=== PATIENT | female | born 1975 | race Caucasian/White ===

== ENCOUNTER 2020-10-20 07:20 | Emergency (ER) | payer SELFPAY ==
[~2020-10-20] VITALS: Ht 167.6 cm; Wt 70.3 kg
[2020-10-20] MEDS ORDERED: MORPHINE SULFATE INJ 4 MG/ML INJ 1ML IV STA (07:30)
[2020-10-20] MEDS ORDERED: SODIUM CHLORIDE 0.9% 1000ML 1,000 ML IV STA (07:30)
[2020-10-20] MEDS ORDERED: ONDANSETRON HCL INJ 2MG/ML 2ML 2 MG/ML VIAL IV PRN (07:30)
[2020-10-20 07:50] LABS: BASOPHILS # (AUTO) 0.1 (0.0-0.1); BASOPHILS % 0.5 % (0.0-1.0); EOSINOPHILS # (AUTO) 0.1 (0.0-0.4); EOSINOPHILS % 1.1 % (0.0-6.0); HEMATOCRIT 43.6 % (34.2-44.1); HEMOGLOBIN 14.7 g/dL (12.0-16.0); LYMPHOCYTES # (AUTO) 2.5 (1.0-3.2); LYMPHOCYTES % 22.4 % (18.0-39.1); MEAN CORPUSCULAR HEMOGLOBIN 30.2 pg (28-32); MEAN CORPUSCULAR HGB CONC 33.7 g/dL (31-35); MEAN CORPUSCULAR VOLUME 89.7 fL (81-99); MONOCYTES # (AUTO) 0.9 (0.2-0.8); MONOCYTES % 8.4 % (4.4-11.3); NEUTROPHILS # (AUTO) 7.5 (2.1-6.9); NEUTROPHILS % 67.2 % (38.7-80.0); PLATELET COUNT 275 x10e3/uL (140-360); RED BLOOD COUNT 4.86 x10e6/uL (3.6-5.1); RED CELL DISTRIBUTION WIDTH 12.1 % (11.7-14.4)
[2020-10-20 08:10] LABS: ALBUMIN 3.6 g/dL (3.5-5.0); ALBUMIN/GLOBULIN RATIO 0.9 (0.8-2.0); ANION GAP 13.8 mmol/L (8-16); CALCIUM 8.8 mg/dL (8.4-10.2); CREATININE, SERUM 1.06 mg/dL (0.57-1.11); POTASSIUM 3.8 mmol/L (3.5-5.1)
[2020-10-20 09:15] LABS: CLARITY,URINE CLOUDY (CLEAR); COLOR,URINE YELLOW (YELLOW); KETONES,URINE NEGATIVE (NEGATIVE); LEUKOCYTE ESTERASE ,URINE TRACE (NEGATIVE); NITRITE,URINE NEGATIVE (NEGATIVE); PROTEIN,URINE DIPSTICK >=300 (NEGATIVE); URINE UROBILINOGEN 1 mg/dL (0.2 - 1)
[2020-10-20 09:38] LABS: BACTERIA,URINE FEW /HPF; EPITHELIAL CELLS,URINE FEW /LPF; RBC,URINE 0-5 /HPF (0-5); WBC,URINE (MAN) >50 /HPF (0-5)
[2020-10-20 09:39] LABS: MUCUS,URINE FEW (RARE)
[2020-10-20] MEDS ORDERED: KEFLEX500 MG PO (10:49)
[2020-10-20] MEDS ORDERED: ULTRAM50 MG PO (10:49)
[2020-10-20] MEDS ORDERED: ZOFRAN4 MG PO (10:49)
[2020-10-20] MEDS ORDERED: SODIUM CHLORIDE 0.9% 50ML 50 ML ONE (11:06)
[2020-10-20] MEDS ORDERED: IOPAMIDOL 370 MG/ML 200 ML INFUS..BTL INJ ONE (11:07)
== END 2020-10-20 11:32 | disposition home or self-care (01) ==
LOC: ER 08:14
DX: N39.0 Urinary tract infection, site not specified (principal); N20.1 Calculus of ureter; I10 Essential (primary) hypertension
CPT/HCPCS: 36415; 74177; 80053; 81001; 83690; 84702; 85025; 87086; 87186; 99284; J2270; J2405; J7030; Q9967

== ENCOUNTER 2020-12-17 14:06 | Emergency (ER) | payer SELFPAY ==
[~2020-12-17] VITALS: Ht 167.6 cm; Wt 70.3 kg
[~2020-12-17 14:06] MED LIST: KEFLEX500 MG PO; ULTRAM50 MG PO; ZOFRAN4 MG PO
[2020-12-17] MEDS ORDERED: SODIUM CHLORIDE 0.9% 1000ML 1,000 ML IV STA (14:21)
[2020-12-17] MEDS ORDERED: KETOROLAC TROMETHAMINE 30 MG/ML VIAL IV STA (14:21)
[2020-12-17] MEDS ORDERED: ONDANSETRON HCL INJ 2MG/ML 2ML 2 MG/ML VIAL IV PRN (14:30)
[2020-12-17] MEDS ORDERED: FENTANYL CITRATE/PF 100MCG/2 ML INJ IV ONE (14:30)
[2020-12-17 14:32] LABS: BASOPHILS # (AUTO) 0.1 (0.0-0.1); BASOPHILS % 0.6 % (0.0-1.0); EOSINOPHILS # (AUTO) 0.1 (0.0-0.4); HEMATOCRIT 44.1 % (34.2-44.1); HEMOGLOBIN 14.5 g/dL (12.0-16.0); LYMPHOCYTES # (AUTO) 1.8 (1.0-3.2); LYMPHOCYTES % 16.3 % (18.0-39.1); MEAN CORPUSCULAR HEMOGLOBIN 29.7 pg (28-32); MEAN CORPUSCULAR HGB CONC 32.9 g/dL (31-35); MEAN CORPUSCULAR VOLUME 90.4 fL (81-99); MONOCYTES # (AUTO) 0.9 (0.2-0.8); MONOCYTES % 8.4 % (4.4-11.3); NEUTROPHILS # (AUTO) 7.9 (2.1-6.9); NEUTROPHILS % 73.1 % (38.7-80.0); PLATELET COUNT 269 x10e3/uL (140-360); RED BLOOD COUNT 4.88 x10e6/uL (3.6-5.1); RED CELL DISTRIBUTION WIDTH 13.3 % (11.7-14.4)
[2020-12-17 14:40] LABS: CLARITY,URINE CLOUDY (CLEAR); COLOR,URINE YELLOW (YELLOW)
[2020-12-17 14:41] LABS: LEUKOCYTE ESTERASE ,URINE SMALL (NEGATIVE); NITRITE,URINE NEGATIVE (NEGATIVE); PROTEIN,URINE DIPSTICK 2+ (NEGATIVE)
[2020-12-17 14:42] LABS: KETONES,URINE NEGATIVE (NEGATIVE); URINE UROBILINOGEN 1 mg/dL (0.2 - 1)
[2020-12-17 14:55] LABS: BACTERIA,URINE FEW /HPF; EPITHELIAL CELLS,URINE RARE /LPF; RBC,URINE 21-50 /HPF (0-5)
[2020-12-17 15:00] LABS: ALBUMIN/GLOBULIN RATIO 1.1 (0.8-2.0); ANION GAP 13.9 mmol/L (8-16); CALCIUM 9.2 mg/dL (8.4-10.2); CREATININE, SERUM 1.07 mg/dL (0.57-1.11); POTASSIUM 3.9 mmol/L (3.5-5.1)
[2020-12-17] MEDS ORDERED: ULTRAM50 MG PO (16:35)
[2020-12-17] MEDS ORDERED: ZUPLENZ4 MG PO (16:36)
[2020-12-17 16:46] VITALS: BP 132/91
== END 2020-12-17 16:52 | disposition home or self-care (01) ==
LOC: ER 14:24
DX: M54.5 Low back pain (principal); R30.0 Dysuria; N20.1 Calculus of ureter; I10 Essential (primary) hypertension; F17.210 Nicotine dependence, cigarettes, uncomplicated
CPT/HCPCS: 36415; 74176; 80053; 81001; 84702; 85025; 99284; J1885; J2405; J3010; J7030

== ENCOUNTER 2021-02-16 07:33 | Emergency (ER) | payer SELFPAY ==
[~2021-02-16] VITALS: Ht 167.6 cm; Wt 70.3 kg
[~2021-02-16 07:33] MED LIST changes: +ZUPLENZ4 MG PO
[2021-02-16] MEDS ORDERED: DEXTROSE 10% 1,000 ML IV ONE (08:15)
[2021-02-16 08:39] LABS: CLARITY,URINE CLOUDY (CLEAR); COLOR,URINE YELLOW (YELLOW); KETONES,URINE NEGATIVE (NEGATIVE); LEUKOCYTE ESTERASE ,URINE LARGE (NEGATIVE); NITRITE,URINE NEGATIVE (NEGATIVE); PROTEIN,URINE DIPSTICK 1+ (NEGATIVE); URINE UROBILINOGEN 0.2 mg/dL (0.2 - 1)
[2021-02-16 08:50] LABS: BACTERIA,URINE MANY /HPF; EPITHELIAL CELLS,URINE FEW /LPF; RBC,URINE 0-5 /HPF (0-5); WBC,URINE (MAN) >50 /HPF (0-5)
[2021-02-16] MEDS ORDERED: AZO BLADDER CO300 MG PO (08:50)
[2021-02-16] MEDS ORDERED: BACTRIM DS TAB1 EACH PO (08:51)
[2021-02-16 08:53] LABS: AMPHETAMINES SCREEN,URINE POSITIVE (NEGATIVE); BENZODIAZEPINES SCREEN,URINE NEGATIVE (NEGATIVE); PHENCYCLIDINE SCREEN,URINE NEGATIVE (NEGATIVE)
== END 2021-02-16 09:28 | disposition home or self-care (01) ==
LOC: ER 08:14
DX: R33.9 Retention of urine, unspecified (principal); N39.0 Urinary tract infection, site not specified; R14.0 Abdominal distension (gaseous); R11.0 Nausea; I10 Essential (primary) hypertension; Z87.442 Personal history of urinary calculi
CPT/HCPCS: 80307; 81001; 87086; 87186; 99283

== ENCOUNTER 2021-07-24 15:30 | Emergency (ER) | payer SELFPAY ==
[~2021-07-24] VITALS: Ht 167.6 cm; Wt 70.3 kg
[~2021-07-24 15:30] MED LIST changes: +AZO BLADDER CO300 MG PO; +BACTRIM DS TAB1 EACH PO
[2021-07-24] MEDS: SODIUM CHLORIDE 0.9% 1000ML 1,000 ML IV SCH ×2 (15:58→17:31)
[2021-07-24] MEDS ORDERED: KETOROLAC TROMETHAMINE 30 MG/ML VIAL IV ONE (16:00)
[2021-07-24 16:24] LABS: BASOPHILS % 0.3 % (0.0-1.0); EOSINOPHILS # (AUTO) 0.1 (0.0-0.4); EOSINOPHILS % 0.4 % (0.0-6.0); HEMATOCRIT 43.9 % (34.2-44.1); HEMOGLOBIN 14.5 g/dL (12.0-16.0); LYMPHOCYTES # (AUTO) 1.6 (1.0-3.2); LYMPHOCYTES % 11.5 % (18.0-39.1); MEAN CORPUSCULAR HEMOGLOBIN 29.8 pg (28-32); MEAN CORPUSCULAR VOLUME 90.1 fL (81-99); MONOCYTES # (AUTO) 1.2 (0.2-0.8); MONOCYTES % 8.9 % (4.4-11.3); NEUTROPHILS # (AUTO) 10.8 (2.1-6.9); NEUTROPHILS % 78.3 % (38.7-80.0); PLATELET COUNT 286 x10e3/uL (140-360); RED BLOOD COUNT 4.87 x10e6/uL (3.6-5.1); RED CELL DISTRIBUTION WIDTH 12.4 % (11.7-14.4)
[2021-07-24] MEDS ORDERED: DIATRIZOATE MEGL/DIATRIZOA SOD 30 ML BTL PO ONE (16:40)
[2021-07-24 16:42] LABS: ALBUMIN 3.3 g/dL (3.5-5.0); ALBUMIN/GLOBULIN RATIO 0.8 (0.8-2.0); ANION GAP 15.4 mmol/L (8-16); CALCIUM 8.9 mg/dL (8.4-10.2); CREATININE, SERUM 0.83 mg/dL (0.57-1.11); POTASSIUM 3.4 mmol/L (3.5-5.1)
[2021-07-24] MEDS ORDERED: MORPHINE SULFATE INJ 4 MG/ML INJ 1ML IV STA (17:03)
[2021-07-24] MEDS ORDERED: MORPHINE SULFATE INJ 4 MG/ML INJ 1ML IV PRN (17:15)
[2021-07-24] MEDS ORDERED: IOPAMIDOL 370 MG/ML 200 ML INFUS..BTL INJ ONE (17:28)
[2021-07-24] MEDS ORDERED: SODIUM CHLORIDE 0.9% 50ML 50 ML ONE (17:28)
[2021-07-24] MEDS ORDERED: FLAGYL500 MG PO (18:48)
[2021-07-24] MEDS ORDERED: CIPRO250 MG PO (18:48)
[2021-07-24 19:31] LABS: CLARITY,URINE SL CLOUDY (CLEAR); COLOR,URINE COLORLESS (YELLOW); LEUKOCYTE ESTERASE ,URINE NEGATIVE (NEGATIVE); NITRITE,URINE NEGATIVE (NEGATIVE)
[2021-07-24 19:32] LABS: KETONES,URINE NEGATIVE (NEGATIVE); PROTEIN,URINE DIPSTICK NEGATIVE (NEGATIVE); URINE UROBILINOGEN 0.2 mg/dL (0.2 - 1)
[2021-07-24 19:41] LABS: BACTERIA,URINE FEW /HPF; EPITHELIAL CELLS,URINE MANY /LPF; WBC,URINE (MAN) 0-5 /HPF (0-5)
== END 2021-07-24 19:05 | disposition home or self-care (01) ==
LOC: ER 15:34
DX: R10.32 Left lower quadrant pain (principal); K57.32 Diverticulitis of large intestine without perforation or abscess without bleeding; N28.1 Cyst of kidney, acquired; I10 Essential (primary) hypertension; Z20.822 Contact with and (suspected) exposure to COVID-19
CPT/HCPCS: 36415; 74177; 80053; 81001; 85025; 99284; J1885; J2270; J7030; Q9967; U0002

== ENCOUNTER 2022-11-10 23:10 | Emergency (ER) | payer SELFPAY ==
[~2022-11-10] VITALS: Ht 167.6 cm; Wt 70.3 kg
[~2022-11-10 23:10] MED LIST changes: +CIPRO250 MG PO; +FLAGYL500 MG PO; +LORAZEPAM INJ 2 MG/ML VIAL IV STA
[2022-11-10 23:22] LABS: BASOPHILS # (AUTO) 0.1 (0.0-0.1); BASOPHILS % 0.6 % (0.0-1.0); EOSINOPHILS # (AUTO) 0.1 (0.0-0.4); EOSINOPHILS % 1.1 % (0.0-6.0); HEMATOCRIT 55.1 % (34.2-44.1); HEMOGLOBIN 17.6 g/dL (12.0-16.0); LYMPHOCYTES # (AUTO) 3.4 (1.0-3.2); LYMPHOCYTES % 35.5 % (18.0-39.1); MEAN CORPUSCULAR HEMOGLOBIN 30.4 pg (28-32); MEAN CORPUSCULAR HGB CONC 31.9 g/dL (31-35); MEAN CORPUSCULAR VOLUME 95.3 fL (81-99); MONOCYTES # (AUTO) 0.8 (0.2-0.8); MONOCYTES % 8.6 % (4.4-11.3); NEUTROPHILS # (AUTO) 5.1 (2.1-6.9); PLATELET COUNT 315 x10e3/uL (140-360); RED BLOOD COUNT 5.78 x10e6/uL (3.6-5.1); RED CELL DISTRIBUTION WIDTH 11.9 % (11.7-14.4)
[2022-11-10 23:43] LABS: ALBUMIN 4.3 g/dL (3.5-5.0); CALCIUM 10.1 mg/dL (8.4-10.2); CREATININE, SERUM 1.29 mg/dL (0.57-1.11)
[2022-11-10 23:50] LABS: CREATINE KINASE MB 2.3 ng/mL (0-5.0)
[2022-11-11] MEDS ORDERED: SODIUM CHLORIDE 0.9% 1000ML 1,000 ML IV STA (00:46)
[2022-11-11 01:56] LABS: AMPHETAMINES SCREEN,URINE POSITIVE (NEGATIVE); BENZODIAZEPINES SCREEN,URINE POSITIVE (NEGATIVE); PHENCYCLIDINE SCREEN,URINE NEGATIVE (NEGATIVE)
[2022-11-11 02:06] LABS: CREATINE KINASE MB 1.8 ng/mL (0-5.0)
== END 2022-11-11 02:24 | disposition home or self-care (01) ==
LOC: ER 23:12
DX: R07.9 Chest pain, unspecified (principal); R06.02 Shortness of breath; F14.10 Cocaine abuse, uncomplicated; F15.10 Other stimulant abuse, uncomplicated; I10 Essential (primary) hypertension; Z87.442 Personal history of urinary calculi; Z87.19 Personal history of other diseases of the digestive system; R94.31 Abnormal electrocardiogram [ECG] [EKG]; F17.210 Nicotine dependence, cigarettes, uncomplicated
CPT/HCPCS: 36415; 71045; 80053; 80307; 81025; 82550; 82553; 83690; 83880; 84484; 85025; 85379; 93005 ×2; 99284; J2060; J7030

== ENCOUNTER 2024-11-18 00:06 | Emergency (ER) | payer SELFPAY ==
[~2024-11-18] VITALS: Ht 167.6 cm; Wt 70.3 kg
[~2024-11-18 00:06] MED LIST changes: +CLONIDINE HCL0.1 MG PO; +HYDROCHLOROTHIA25 MG PO; -LORAZEPAM INJ 2 MG/ML VIAL IV STA; +ZESTRIL20 MG PO
[2024-11-18 00:10] VITALS: PULSE 76; RESP 18; TEMP 98.9; O2SAT 98
[2024-11-18] MEDS ORDERED: ONDANSETRON ODT4 MG SL (00:58)
[2024-11-18] MEDS ORDERED: PENICILLIN V P500 MG PO (00:58)
== END 2024-11-18 01:50 | disposition home or self-care (01) ==
LOC: ER 00:53
DX: K04.7 Periapical abscess without sinus (principal); K02.9 Dental caries, unspecified; I10 Essential (primary) hypertension; Z87.19 Personal history of other diseases of the digestive system; Z87.442 Personal history of urinary calculi
CPT/HCPCS: 99283